=== PATIENT | female | born 1970 | race African-American/Black ===

== ENCOUNTER 2019-11-22 20:17 | Emergency (ER) | payer BC ==
[~2019-11-22] VITALS: Ht 182.9 cm; Wt 81.6 kg
[2019-11-22] MEDS ORDERED: PROG50VI3 IM (20:40)
[2019-11-22] MEDS ORDERED: ESTR0.5T PO (20:42)
[2019-11-22] MEDS ORDERED: ASPI81TA31 PO (20:42)
[2019-11-22] MEDS ORDERED: diphenhydrAMINE 50 MG/1 ML VIAL IM ONE (21:00)
[2019-11-22] MEDS ORDERED: predniSONE 20 MG TABLET PO ONE (21:00)
[2019-11-22] MEDS ORDERED: diphenhydrAMINE 50 MG/1 ML VIAL ONE (21:02)
[2019-11-22] MEDS ORDERED: predniSONE 20 MG TABLET ONE (21:03)
--- NOTE | 2019-11-22 21:36 | NUR ---
Patient discharged to home in stable conditon. Written and verbal after care instructions given. Patient verbalizes understanding of instructions. Ambulated from ER with stable gait. All belongings with patient.
[2019-11-22 21:38] VITALS: BP 131/81
== END 2019-11-22 21:38 | disposition home or self-care (01) ==
LOC: ER 20:20
DX: T78.3XXA Angioneurotic edema, initial encounter (principal); Z79.82 Long term (current) use of aspirin; Z79.899 Other long term (current) drug therapy
CPT/HCPCS: 96372; 99283; J1200; J7512; A4663